=== PATIENT | male | born 1940 | race Caucasian/White ===

== ENCOUNTER 2018-03-16 04:56 | Emergency (ER) | payer OTHER ==
[2018-03-16] MEDS: LIDOCAINE 1%/EPI 30 ML INJ INJ (06:20)
== END 2018-03-16 07:10 | disposition home or self-care (01) ==
LOC: FTE 04:56
DX: S01.511A Laceration without foreign body of lip, initial encounter (principal); R40.2412 Glasgow coma scale score 13-15, at arrival to emergency department; I10 Essential (primary) hypertension; W22.8XXA Striking against or struck by other objects, initial encounter; Y92.9 Unspecified place or not applicable; Z87.891 Personal history of nicotine dependence
CPT/HCPCS: 12052; 99282-25